=== PATIENT | male | born 1980 | race Caucasian/White ===

== ENCOUNTER 2017-01-13 14:14 | Inpatient (IN) | payer OTHER ==
[2017-01-13 15:07] LABS: % IMMATURE GRANULYOCYTES 0.3 % (0.0-1.1); ABSOLUTE IMMATURE GRANULOCYTES 0.03 10^3/uL (0.00-0.10); ADD DIFF? NO; ADD MORPH? NO; ADD SCAN? NO; ATYPICAL LYMPHOCYTE FLAG 0 (0-99); FRAGMENT RBC FLAG 0 (0-99); HEMATOCRIT 43.8 % (40.0-51.0); HEMOGLOBIN 14.8 g/dL (13.7-17.5); LEFT SHIFT FLG 0 (0-99); LIPEMIA HEMOLYSIS FLAG 90 (0-99); MEAN CELL HEMOGLOBIN 33.9 pg (27.9-34.1); MEAN CELL HEMOGLOBIN CONCENTR. 33.8 g/dL (32.4-36.7); MEAN CELL VOLUME 100.5 fL (81.5-99.8); MEAN PLATELET VOLUME 10.2 fL (8.7-11.7); PLATELET CLUMPS FLAG 0 (0-99); PLATELET COUNT 323 10^3/uL (150-400); RED BLOOD CELL COUNT 4.36 10^6/uL (4.40-6.38); RED CELL DISTRIBUTION WIDTH 12.4 % (11.5-15.2)
[2017-01-13 15:14] LABS: ANION GAP 11 mEq/L (8-16); CALCIUM 9.5 mg/dL (8.5-10.4); CARBON DIOXIDE 23 mEq/l (22-31); CHLORIDE 108 mEq/L (97-110); CREATININE 1.1 mg/dL (0.7-1.3); ETHANOL SERUM < 10 mg/dL (0-10); GLOMERULAR FILTRATION RATE > 60; GLUCOSE 100 mg/dL (70-100); POTASSIUM 4.3 mEq/L (3.5-5.2); SODIUM 142 mEq/L (134-144)
--- NOTE | 2017-01-13 15:41 | EDPHY ---
Mental Health General Previous Psychiatric History: previous inpatient psychiatric admission Smoking Status: Current every day smoker Time Medically Cleared for Psychiatric Evaluation: 15:45 Time of Transfer of Care: 18:[address] To [address]:: Wagner Course: patient remained stable over course of my shift, no additional interventions Narrative: HPI: This is a 37-year-old male who presents with Chief Complaint: Hearing voices Location: Quality: Hearing voices Duration: Weeks to months Signs and Symptoms: Denies suicidal ideation, denies homicidal ideation, + auditory hallucinations, + visual hallucinations, + paranoia Timing: Daily Severity: Moderate to severe Context: Patient presents with voluntary request for psychiatric evaluation. Reports that he is in transit from [facility] to [place] due to lower cost of living. He reports over the last couple weeks to months; he is being hearing more than 2 different voices commanding him to do things. He refuses to elaborate with those are. He also reports that he feels like hands or in [place] at objects are moving through his head and rubbing on his body and at times grabs his extremities to make them do things that he does not want to do. He feels like someone else's brain is connected to his remotely; possibly connected via computer. He denies that he wants to hurt himself or others. He has had prior psychiatric evaluation but denies any psychiatric diagnoses like schizophrenia, bipolar, schizoaffective, psychotic breaks. He was diagnosed with Tourette's syndrome as an adult but is not on any medications for this. He is currently living in his vehicle. Reports that he had father uncle who committed suicide. Denies parents having any psychiatric illnesses. Denies using any recreational drugs. Modifying Factors: No primary care provider. No family support. Comment: ROS: Constitutional: No fever, no chills, no weight loss Eyes: No blurred vision Respiratory: No shortness of breath, no cough Cardiovascular: No chest pain Gastrointestinal: No nausea, no vomiting no diarrhea Genitourinary: No dysuria Extremities: No myalgias Neurologic: No weakness, no numbness Skin: No rashes Hematologic: No bruising, no bleeding MEDICAL/SURGICAL HISTORY: Tourette syndrome. Denies any surgical history. SOCIAL HISTORY: homeless. living in car. unemployed. CONSTITUTIONAL: Adult white male, well groomed, good personal hygiene, awake and alert, no obvious distress HEENT: Atraumatic and normocephalic, PERRL, EOMI. Tympanic membranes clear. Oropharynx clear, no exudate and moist pink mucosa. Airway patent. No lymphadenopathy. No meningismus. Cardiovascular: Normal S1/S2, regular rate, regular rhythm, without murmur rub or gallop. PULMONARY/CHEST: Symmetrical and nontender. Clear to auscultation bilaterally Good air movement. No accessory muscle usage. ABDOMEN: Soft, nondistended, nontender, no rebound, no guarding, no peritoneal signs, no masses or organomegaly. No CVAT. EXTREMITIES: 2/2 pulses, no deformities, no clubbing, no cyanosis or edema. NEUROLOGICAL: no focal neuro deficits. GCS 15. PSYCH: No suicidal ideations, no homicidal ideations. + hallucinations, + flight of ideas, poor insight, no depression. SKIN: Warm and dry, no erythema. no rash. Good capillary refill. (Hiral Atkins) The patient was evaluated and managed by the physician psychological assistant. I have reviewed this chart and I agree with the findings and plan of care as documented , as indicated by my signature. I am the secondary supervising physician. (Verónica Lainez) Medical Decision Makin: Patient is here voluntarily; will do the medical workup clearance; then mental health eval. No interventions are needed at this time. Patient is calm and cooperative. 1545: Labs reviewed, urine drug screen positive for marijuana. Medically clear for psych eval. 1725: Re-evaluated patient is calm and cooperative, awaiting medical evaluation. 1800: End of shift: Signed out to Dr. Edward (Hiral Atkins) - Objective Vital Signs: Initial Vital Signs Temperature (C) 37 C 01/13/17 14:23 Heart Rate 99 01/13/17 14:23 Respiratory Rate 18 01/13/17 14:23 Blood Pressure 153/90 H 01/13/17 14:23 O2 Sat (%) 94 01/13/17 14:23 O2 Delivery Mode Room Air Allergies/Adverse Reactions: ziprasidone [From Geodon] Allergy (Verified 01/13/17 14:26) Medications Given: Discontinued Medications Acetaminophen (Tylenol) 1,000 mg PO EDNOW ONE Stop: 01/13/17 17:19 Last Admin: 01/13/17 17:21 Dose: 1,000 mg Laboratory Results: Laboratory Results 01/13/17 14:40 01/13/17 14:40 01/13/17 01/13/17 01/13/17 15:15 14:40 14:40 WBC 9.56 10^3/uL H 10^3/uL (3.80-9.50) RBC 4.36 10^6/uL L 10^6/uL (4.40-6.38) Hgb 14.8 g/dL g/dL (13.7-17.5) Hct 43.8 % % (40.0-51.0) MCV 100.5 fL H fL (81.5-99.8) MCH 33.9 pg pg (27.9-34.1) MCHC 33.8 g/dL g/dL (32.4-36.7) RDW 12.4 % % (11.5-15.2) Plt Count 323 10^3/uL 10^3/uL (150-400) MPV 10.2 fL fL (8.7-11.7) Neut % (Auto) 57.0 % % (39.3-74.2) Lymph % (Auto) 34.0 % % (15.0-45.0) [place] % (Auto) 5.9 % % (4.5-13.0) Eos % (Auto) 2.3 % % (0.6-7.6) Baso % (Auto) 0.5 % % (0.3-1.7) Nucleat RBC Rel Count 0.0 % % (0.0-0.2) Absolute Neuts (auto) 5.45 10^3/uL 10^3/uL (1.70-6.50) Absolute Lymphs (auto) 3.25 10^3/uL H 10^3/uL (1.00-3.00) Absolute Monos (auto) 0.56 10^3/uL 10^3/uL (0.30-0.80) Absolute Eos (auto) 0.22 10^3/uL 10^3/uL (0.03-0.40) Absolute Basos (auto) 0.05 10^3/uL 10^3/uL (0.02-0.10) Absolute Nucleated RBC 0.00 10^3/uL 10^3/uL (0-0.01) Immature Gran % 0.3 % % (0.0-1.1) Immature Gran # 0.03 10^3/uL 10^3/uL (0.00-0.10) Sodium 142 mEq/L mEq/L (134-144) Potassium 4.3 mEq/L mEq/L (3.5-5.2) Chloride 108 mEq/L mEq/L (97-110) Carbon Dioxide 23 mEq/l mEq/l (22-31) Anion Gap 11 mEq/L mEq/L (8-16) BUN 13 mg/dL mg/dL (7-23) Creatinine 1.1 mg/dL mg/dL (0.7-1.3) Estimated GFR > 60 Glucose 100 mg/dL mg/dL (70-100) Calcium 9.5 mg/dL mg/dL (8.5-10.4) Urine Opiates Screen NEGATIVE (NEGATIVE) Urine Barbiturates NEGATIVE (NEGATIVE) Ur Phencyclidine Scrn NEGATIVE (NEGATIVE) Ur Amphetamine Screen NEGATIVE (NEGATIVE) U Benzodiazepines Scrn NEGATIVE (NEGATIVE) Urine Cocaine Screen NEGATIVE (NEGATIVE) U Marijuana (THC) Screen NON-NEGATIVE H (NEGATIVE) Ethyl Alcohol < 10 mg/dL mg/dL (0-10) Departure - Departure Clinical Impression: Paranoia, Auditory hallucinations, Formed visual hallucinations Referrals: NONE *PRIMARY CARE P,. [Primary Care Provider] - As per Instructions
[2017-01-13] MEDS ORDERED: ACETAMINOPHEN 500 MG TAB PO ONE (17:18)
[2017-01-13] MEDS ORDERED: IBUPROFEN 600 MG TAB PO ONE (19:40)
[2017-01-14] MEDS ORDERED: ACETAMINOPHEN 325 MG TAB PO PRN (15:45)
[2017-01-14] MEDS ORDERED: MAGNESIUM HYDROXIDE 30 ML UDCUP PO PRN (15:45)
[2017-01-14] MEDS ORDERED: NICOTINE POLACRILEX 2 MG GUM B PRN (15:45)
[2017-01-14] MEDS ORDERED: MAG HYDROX/AL HYDROX/SIMETH 30 ML UDCUP PO PRN (15:45)
[2017-01-14] MEDS: OLANZapine DISINTEGR 10 MG TAB PO PRN (16:18)
[2017-01-14] MEDS: LORazepam 0.5 MG TAB PO PRN (19:25)
[2017-01-14] MEDS ORDERED: OLANZapine DISINTEGR 10 MG TAB PO ONE (20:15)
[2017-01-14] MEDS ORDERED: LORazepam 1 MG TAB PO ONE (20:15)
[2017-01-15] MEDS: OLANZapine DISINTEGR 10 MG TAB PO PRN ×2 (08:09→15:41)
[2017-01-15] MEDS: LORazepam 0.5 MG TAB PO PRN ×2 (08:10→15:41)
--- NOTE | 2017-01-15 15:01 | SOAPPROG ---
[facility] Progress Note Assessment/Plan: Assessment: 01/15/17 16:00 pt uncooperative/unable to cooperate with any meaningful interview, due to outbursts of screaming and hitting self on L side of head with L fist, then apologizing briefly upon attempt at redirection. reports he is not in control, has something implanted in his body and feels his brain is being controlled, sometimes doing or saying things he doesn't remember and thus feeling he cannot be responsible for actions which he engages in during such times. denied that he was having any SI/HI but +AH. mentioned hx of SZs and motor/vocal tics, refuses to/not signing any ROIs staff (RN and security) present during interview. -cont Zyprexa 10mg prn TDDNTE 30mg. -Cont Ativan 1-2mg prn -cont SP/AP and on M-1 -add LFTs, TSH to labs -add VPA 500mg bid for mood/?neuro -attempt to obtain any collateral Objective: Vital Signs Temp Pulse Resp BP Pulse Ox 36.9 C 80 16 133/67 H 97 01/14/17 15:03 01/14/17 15:03 01/14/17 15:03 01/14/17 15:03 01/14/17 15:03 - Pending Discharge Pending Discharge Within 24 Hours: No Pending Discharge Within 48 Hours: No ICD10 Worksheet Patient Problems: Problems Problem Status Onset Auditory hallucinations Acute Formed visual hallucinations Acute Paranoia Acute
--- NOTE | 2017-01-15 15:27 | SOAPPROG ---
SOAP Progress Note Assessment/Plan: Assessment: Plan: Objective: Vital Signs Temp Pulse Resp BP Pulse Ox 36.9 C 80 16 133/67 H 97 01/14/17 15:03 01/14/17 15:03 01/14/17 15:03 01/14/17 15:03 01/14/17 15:03 ICD10 Worksheet Patient Problems: Problems Problem Status Onset Auditory hallucinations Acute Formed visual hallucinations Acute Paranoia Acute
[2017-01-15] MEDS: DIVALPROEX NA 500 MG TAB PO SCH ×2 (16:32→19:48)
[2017-01-15 17:05] LABS: ALANINE AMINOTRANSFERASE 41 IU/L (21-72); ALKALINE PHOSPHATASE 112 IU/L (38-126); ASPARTATE AMINOTRANSFERASE 27 IU/L (17-59); BILIRUBIN,TOTAL 0.4 mg/dL (0.1-1.4); BILIRUBIN-CONJUGATED 0.3 mg/dL (0.0-0.5); BILIRUBIN-UNCONJUGATED 0.1 mg/dL (0.0-1.1)
--- NOTE | 2017-01-15 19:28 | BCON ---
[f rep st] BEHAVIORAL HEALTH CONSULTATION INTERNAL MEDICINE CONSULTATION DATE OF CONSULTATION: 01/15/2017 REFERRING PHYSICIAN: Dr. Crouch. REASON FOR REFERRAL: Medical clearance for inpatient behavioral health stay. HISTORY OF PRESENT ILLNESS: This patient self-presented to the [facility] emergency department requesting a psychiatric evaluation. He reported he was hearing multiple voices commanding him to do things, and he reported that he felt like someone else's brain was connected to his remotely. He was evaluated by the mental health team and admitted for further psychiatric care. He currently complains of something being inside him and wants an MRI scan done from his pelvis to his head, to find out what is inside him and have it removed. He is otherwise without acute complaints. PAST MEDICAL HISTORY: Tourette syndrome. PAST SURGICAL HISTORY: He denies any history of surgeries. MEDICATIONS: He is on no medications. ALLERGIES: He reports an allergy to ziprasidone, but he does not recall what happened. SOCIAL HISTORY: He is homeless, he is living in his car. He reportedly is traveling from [facility] to [place]. He is unemployed and has been homeless for 12 years, per report. He is a tobacco smoker and he uses marijuana. FAMILY HISTORY: Noncontributory. REVIEW OF SYSTEMS: He reports a 10-15 pounds weight loss through the summer; he says that through the summer, he has had episodes of vomiting which feel more like external control of his vomiting reflex to him. He is hungry. He has had more frequent defecation. He denies feeling excessively hot or cold. He denies a tremor. He denies headache or vision changes. He denies weakness, numbness or tingling of the extremities. He denies cough or dyspnea. He denies chest pain or palpitations. He denies urinary frequency or dysuria. He denies joint pain or joint swelling. Otherwise, a 10-point review of systems is negative. PHYSICAL EXAM: VITAL SIGNS: From yesterday afternoon, blood pressure was 133/ 67, heart rate was 80, respiratory rate was 16, oxygen saturation was 97% on room air. His temperature was 36.9 degrees centigrade. His weight is 86.2 kg for a body mass index of 25.1. GENERAL: This is a well-nourished, well- developed man, appears his chronologic age, cooperative, and in no acute distress. HEENT: Extraocular movements are intact, though he reports diplopia with down gaze. Pupils are equal, round, and reactive to light. Mucous membranes are moist. Dentition is in good condition. Airway is uncrowded, Mallampati class 1. There are no oropharyngeal mucosal lesions. There is no posterior oropharyngeal mucus. NECK: Supple. There is mild thyromegaly, symmetric bilateral. HEART: There is a regular rate and rhythm with no murmurs , rubs, or gallops. LUNGS: Clear to auscultation bilaterally. ABDOMEN: Soft , nontender, nondistended with normoactive bowel sounds. EXTREMITIES: There is no cyanosis, clubbing, or edema. NEUROLOGIC: He is alert and oriented x3. Cranial nerves 2-12 are grossly intact. There is no focal weakness. Sensation is intact to light touch. Gait is within normal limits. Deep tendon reflexes are hypoactive bilaterally at the biceps tendons, and 1+ bilaterally at the patella and Achilles tendons. There is no pronator drift. There is no tremor. At the end of the encounter, he began having vocal tics including snorting and yelling. LABORATORY STUDIES: Drawn in the emergency department: Hematology, his CBC revealed an elevated white blood cell count at 9.56; he had a slightly low red blood cell count at 4.36; he had an elevated MCV at 100.5. Otherwise, a CBC was within normal limits. Serum chemistry revealed normal renal function, and normal liver functions and electrolytes. TSH was suppressed at 0.373. Toxicology screen in the serum was negative for ethyl alcohol, and the urine was non-negative for marijuana, but otherwise negative for substances of abuse. ASSESSMENT/RECOMMENDATIONS: 1. Mental health issues. Pending further evaluation and management per Psychiatry and the mental health team. 2. Weight loss and suppressed TSH. He lacks other signs that would be consistent with hyperthyroidism such as a tremor or being warm and diaphoretic. However, he does seem to have an enlarged thyroid. I will add on a free T4 and a T3 to further evaluate his thyroid function. He should have follow-up testing after discharge. 3. Self report of diplopia. Seems somewhat unlikely to happen only with down gaze, and there were no obvious abnormalities of eye movements. By itself, this does not indicate a need for a brain MRI. I will leave it to the discretion of Psychiatry whether brain imaging is indicated given his psychiatric syndrome. 4. Macrocytosis. I will add a B12 to the labs that were drawn today. 5. I see no medical contraindications to this patient's continued stay on the inpatient behavioral health unit or to any psychiatric medications or procedures. Thank you very much for including me in the care of this patient and please do not hesitate to contact me or the hospitalist service should there be need for further medical evaluation. /[id number]/MODL MTDD
[2017-01-16] MEDS: OLANZapine DISINTEGR 10 MG TAB PO PRN (08:18)
[2017-01-16] MEDS: DIVALPROEX NA 500 MG TAB PO SCH (08:18)
[2017-01-16] MEDS: LORazepam 0.5 MG TAB PO PRN ×2 (08:18→08:33)
[2017-01-16] MEDS ORDERED: OLANZapine DISINTEGR 10 MG TAB PO PRN (11:39)
[2017-01-16] MEDS: hydrOXYzine HCL 50 MG TAB PO PRN ×2 (12:06→20:20)
[2017-01-16] MEDS: OLANZapine DISINTEGR 10 MG TAB PO SCH (19:58)
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
[2017-01-17] MEDS: OLANZapine DISINTEGR 10 MG TAB PO SCH ×2 (08:18→20:42)
[2017-01-17] MEDS: LORazepam 0.5 MG TAB PO PRN (08:22)
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
[2017-01-18] MEDS: OLANZapine DISINTEGR 10 MG TAB PO SCH ×2 (09:37→20:46)
[2017-01-19] MEDS: OLANZapine DISINTEGR 10 MG TAB PO SCH ×2 (08:41→20:38)
[2017-01-19] MEDS: LORazepam 0.5 MG TAB PO PRN ×2 (08:48→15:12)
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
[2017-01-20] MEDS: OLANZapine DISINTEGR 10 MG TAB PO SCH ×2 (08:54→20:41)
[2017-01-20] MEDS: hydrOXYzine HCL 50 MG TAB PO PRN (10:10)
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
[2017-01-20] MEDS: LORazepam 0.5 MG TAB PO PRN (16:18)
[2017-01-21] MEDS: hydrOXYzine HCL 50 MG TAB PO PRN (02:01)
[2017-01-21 06:13] VITALS: BP 129/84; PULSE 72; RESP 14; TEMP 98.4; O2SAT 93
[2017-01-21] MEDS: OLANZapine DISINTEGR 10 MG TAB PO SCH (08:43)
[2017-01-21] MEDS: LORazepam 0.5 MG TAB PO PRN (12:50)
[2017-01-21] MEDS: [UNRECOGNIZED DRUG - OTHER] ID ONE ×2 (13:59→14:26)
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
== END 2017-01-21 15:00 | disposition home or self-care (01) | DRG 885 ==
LOC: BBEH 01-14 14:30
PROVIDERS: ADMIT Psychiatry & Neurology Psychiatry; ATTEND Psychiatry & Neurology Psychiatry
DX: F29 Unspecified psychosis not due to a substance or known physiological condition (principal); Z72.0 Tobacco use; Z59.0 Homelessness; F12.90 Cannabis use, unspecified, uncomplicated
CPT/HCPCS: 80305; 82607-90; 84481-90; G0480